=== PATIENT | male | born 1965 | race Caucasian/White ===

== ENCOUNTER → 2017-05-09 | Outpatient (CLI) | payer BC ==
--- NOTE | 2017-05-09 17:24 | PCVCIMAG ---
APPROVED REPORT Exam: Stress Echocardiogram Indication: CAD s/p PCI, Hypertension, Hyperlipidemia Patient Location: Echo lab Stress Nurse: Abby Albright RN Room #: 1 Status: routine Ht: 6 ft 0 in HR: 56 bpm BP: 142/84 mmHg Rhythm: Bradycardia Medical History Medical History: CAD s/p CT,Stents Cardiac Risk Factors: HTN, Hyperlipidemia Previous Cardiac Procedures: PCI Pretest Chest Pain Characteristics: No chest pain Procedure The patient underwent an Exercise Stress Test using the Huey Protocol. Blood pressure, heart rate, and EKG were monitored. An Echocardiogram was performed by truck technician in four stages in quad fashion. At peak stress, four selected images were obtained and placed side by side with resting images for comparison. Stress Test Details Stress Test: Exercise stress testing was performed using a Huey protocol. HR Resting HR: 60 bpmMax Heart Rate (APMHR): 169 bpm Max HR Achieved: 173 bpmTarget HR (85% APMHR): 143 bpm % of APMHR: 102 Recovery HR: 81 bpm HR response to stress: Normal HR response to stress BP Resting BP: 142/84 mmHg Max BP: 200/100 mmHg Recovery BP: 180/84 mmHg ECG Resting ECG: Sinus Rhythm Stress ECG: Sinus Rhythm ST Change: Horizontal ST depression Maximum ST Deviation: 2 mm Arrhythmia: Frequent PVCs with occasional couplets Recovery ECG: Sinus Rhythm Recovery Arrhythmia: VPC Clinical Reason for Termination: Maximal effort Stress Symptoms: none Exercise duration: 12 min 49 sec Highest Stage Achieved: Stage 5: 5.0 mph at 18% grade. Exercise capacity: 16.4 METs Overall Exercise Capacity for Age: Excellent Angina Score: None Stress ECG Conclusion The patient exercised according to the Huey Protocol for12:49 minutes, achieving a maximum work level of 16.4 METS. The resting heart rate of 56 bpm, magda to a maximal level of 173 bpm. This value represents 102% of the maximal, age-predicted heart rate. The resting blood pressure of 142/84 mmHg, magda to a maximum blood pressure of 208/100 mmHg. The exercise was stopped due to fatigue. [place] Treadmill Score is 2.0 which is Moderate risk. Pre-Stress Echo The resting Echocardiogram showed normal left ventricular contractility with an estimated Ejection Fraction of about 55-60%. Distal septal hypokinesis Post-Stress Echo The stress Echocardiogram showed abnormal left ventricular contractility with an estimated Ejection Fraction of about 60-65%. The stress Echocardiogram demonstrated wall motion abnormality in the distal septal and apical anterior ross. Conclusion Clinical Response: Non-ischemic Exercise Capacity: Superior Stress ECG Response: Ischemic Stress Echo Images: Ischemic
== END | disposition home or self-care (01) ==
LOC: PCVCIMAG 15:21
PROVIDERS: ATTEND Internal Medicine
DX: I25.10 Atherosclerotic heart disease of native coronary artery without angina pectoris (principal); I10 Essential (primary) hypertension; E78.5 Hyperlipidemia, unspecified; Z87.891 Personal history of nicotine dependence; Z79.82 Long term (current) use of aspirin; Z79.899 Other long term (current) drug therapy; Z95.5 Presence of coronary angioplasty implant and graft
CPT/HCPCS: 93005; 93325; 93351; G0463